=== PATIENT | female | born 1975 | race Two or more races ===

== ENCOUNTER 2016-07-31 07:50 | Emergency (ER) | payer MEDICAID ==
[2016-07-31] MEDS ORDERED: DIPHENHYDRAMINE HCL 50 MG/1 ML VIAL ONE (08:25)
[2016-07-31] MEDS ORDERED: METOCLOPRAMIDE HCL 5 MG/ML 2ML VIAL ONE (08:25)
[2016-07-31] MEDS ORDERED: KETOROLAC TROMETHAMINE 60 MG/2 ML VIAL ONE (08:25)
[2016-07-31] MEDS ORDERED: MECLIZINE HCL 25 MG TABLET ONE (08:25)
== END 2016-07-31 09:09 | disposition home or self-care (01) ==
LOC: ED 07:50
DX: G43.909 Migraine, unspecified, not intractable, without status migrainosus (principal); R42 Dizziness and giddiness
CPT/HCPCS: 99283 ×2; 96372 ×3; A9270; J1200; J2765; J1885